=== PATIENT | male | born 1955 | race African-American/Black ===

== ENCOUNTER 2018-11-05 14:32 | Inpatient (IN) | payer OTHER ==
[2018-11-05 18:22] VITALS: BMI 21.9
--- NOTE | 2018-11-05 19:22 | HP ---
CIWA Score Nausea/Vomitin-Mild Nausea/No Vomiting Muscle Tremors: 4-Moderate,w/Arms Extend Anxiety: 3 Agitation: 3 Paroxysmal Sweats: No Perspiration Orientation: 0-Oriented Tacttile Disturbances: 0-None Auditory Disturbances: 0-None Visual Disturbances: 1-Very Mild Sensitivity Headache: 1-Very Mild CIWA-Ar Total Score: 13 - Admission Criteria OASAS Guidelines: Admission for Medically Managed Detox: Requires at least one of the followin. CIWA greater than 12 2. Seizures within the past 24 hours 3. Delirium tremens within the past 24 hours 4. Hallucinations within the past 24 hours 5. Acute intervention needed for co occurring medical disorder 6. Acute intervention needed for co occurring psychiatric disorder 7. Severe withdrawal that cannot be handled at a lower level of care (continued vomiting, continued diarrhea, abnormal vital signs) requiring intravenous medication and/or fluids 8. Patient presents the following: CIWA greater than 12, Acute intervention needed for co-occurring med or psych disorder Admission Criteria Met: Admission criteria met Admission ROS [facility] Chief Complaint: im tired of this Allergies/Adverse Reactions: Allergies Allergy/AdvReac Type Severity Reaction Status Date / Time Penicillins Allergy Intermediate Hives Verified 11/05/18 17:56 History of Present Illness: using substances since age 14 cocaine and marijuana "hangout thing" problematic at age 18 consequences incarceration x 23 years unemployment relationship difficulty on mmtp x 5 years has not impacted use, feels he has escalated heroin use "i want to get it together" - Ebola screening Have you traveled outside of the country in the last 21 days: No (N) Have you had contact with anyone from an Ebola affected area: No Do you have a fever: No - Review of Systems Constitutional: Loss of Appetite, Unintentional Wgt. Loss EENT: reports: No Symptoms Reported Respiratory: reports: No Symptoms reported Cardiac: reports: No Symptoms Reported GI: reports: Poor Appetite, Abdominal cramping : reports: No Symptoms Reported Musculoskeletal: reports: No Symptoms Reported Integumentary: reports: No Symptoms Reported Neuro: reports: No Symptoms reported Endocrine: reports: No Symptoms Reported Hematology: reports: No Symptoms Reported Psychiatric: reports: Depressed (tearful, says he thought about what would happen if he just took a bunch of pills does not feel like he would act on it and says he is not currently suicidal) Patient History - Patient Medical History Hx Anemia: No Hx Asthma: Yes Hx Chronic Obstructive Pulmonary Disease (COPD): No Hx Cancer: No Hx Cardiac Disorders: Yes Hx Congestive Heart Failure: No Hx Hypertension: Yes Hx Hypercholesterolemia: Yes Hx Pacemaker: No HX Cerebrovascular Accident: No Hx Seizures: No Hx Dementia: No Hx Diabetes: No Hx Gastrointestinal Disorders: No Hx Liver Disease: No Hx Genitourinary Disorders: No Hx Sexually Transmitted Disorders: No Hx Renal Disease (ESRD): No Hx Thyroid Disease: No Hx Human Immunodeficiency Virus (HIV): No Hx Hepatitis C: No Hx Depression: Yes Hx Suicide Attempt: No Hx Bipolar Disorder: No Hx Schizophrenia: No - Patient Surgical History Past Surgical History: Yes Hx Neurologic Surgery: No Hx Cataract Extraction: No Hx Cardiac Surgery: Yes (STENTS placed 2013) Hx Lung Surgery: No Hx Breast Surgery: No Hx Breast Biopsy: No Hx Abdominal Surgery: No Hx Appendectomy: No Hx Cholecystectomy: No Hx Genitourinary Surgery: No Hx Section: No Hx Orthopedic Surgery: No Anesthesia Reaction: No - PPD History Date: 06/18/15 Results: Negative - Smoking Cessation Smoking history: Current every day smoker Have you smoked in the past 12 months: Yes Aproximately how many cigarettes per day: 4 Hx Chewing Tobacco Use: No Initiated information on smoking cessation: Yes 'Breaking Loose' booklet given: 11/05/18 - Substances abused Heroin Substance route: Inhalation Frequency: Daily Amount used: 80 dollars or 100 $ Age of first use: 19 Date of last use: 11/05/18 Cocaine Substance route: Inhalation Frequency: Daily Amount used: 100 dollars Age of first use: 19 Date of last use: 11/05/18 Crack Substance route: Smoking Frequency: Daily Amount used: 100 to 150 dollars Age of first use: 24 Date of last use: 11/05/18 Alcohol Substance route: Oral Frequency: Daily Amount used: 1 pint of bacardi/ 3 quarts of beer. Age of first use: 11 Date of last use: 11/05/18 Marijuana/Hashish Substance route: Smoking Frequency: Daily Amount used: 100 dollars Age of first use: 10 Date of last use: 11/05/18 Family Disease History - Family Disease History Family Disease History: Heart Disease: Father (CAD), Mother (HTN,STOMACH), CA: Mother Admission Physical Exam [facility] - Vital Signs Vital Signs: Vital Signs - 24 hr 11/05/18 11/05/18 17:56 18:52 Temperature 97.6 F 97.6 F Pulse Rate 66 66 Respiratory 18 18 Rate Blood Pressure 176/78 H 176/78 H - Physical General Appearance: Yes: Thin, Anxious HEENTM: Yes: EOMI (adentulous) Respiratory: Yes: Chest Non-Tender, Lungs Clear, Normal Breath Sounds Neck: Yes: Within Normal Limits Breast: Yes: Breast Exam Deferred Cardiology: Yes: Regular Rhythm, Regular Rate, S1, S2 Abdominal: Yes: Normal Bowel Sounds, Non Tender, Flat, Soft Genitourinary: Yes: Within Normal Limits Back: Yes: Normal Inspection Musculoskeletal: Yes: full range of Motion, Gait Steady Extremities: Yes: Normal Capillary Refill, Normal Inspection, Normal Range of Motion, Non-Tender Neurological: Yes: Within Normal Limits, apartment property manager II-XII NML intact, Fully Oriented, Alert, Motor Strength 5/5 Integumentary: Yes: Within Normal Limits - Diagnostic (1) CAD (coronary artery disease) Current Visit: Yes Status: Chronic Qualifiers: Coronary Disease-Associated Artery/Lesion type: [place] artery [place] vs. transplanted heart: [place] heart Associated angina: without angina Qualified Code(s): I25.10 - Atherosclerotic heart disease of [place] coronary artery without angina pectoris (2) Cannabis dependence Current Visit: Yes Status: Chronic (3) Cocaine dependence, uncomplicated Current Visit: Yes Status: Chronic (4) HTN (hypertension) Current Visit: Yes Status: Chronic Qualifiers: Hypertension type: essential hypertension Qualified Code(s): I10 - Essential (primary) hypertension (5) Hypercholesterolemia Current Visit: Yes Status: Chronic (6) MDD (major depressive disorder), recurrent severe, without psychosis Current Visit: Yes Status: Chronic (7) Methadone maintenance therapy patient Current Visit: Yes Status: Chronic (8) PTSD (post-traumatic stress disorder) Current Visit: Yes Status: Chronic (9) Alcohol dependence with withdrawal Current Visit: Yes Status: Acute (10) Opiate dependence, continuous Current Visit: Yes Status: Chronic (11) Heroin dependence Current Visit: Yes Status: Chronic Breathalyzer - Breathalyzer Breathalyzer: 0 Urine Drug Screen - Test Device Lot number: [id number] Expiration date: 08/15/20 - Control Is test valid?: Yes - Results Drug screen NEGATIVE: Yes Urine drug screen results: THC-Marijuana, DAVID-Cocaine, FEN-Fentanyl, MOP-Opiates , OXY-Oxycodone, MTD-Methadone Inpatient Rehab Admission - Rehab Decision to Admit Inpatient rehab admission?: No
[2018-11-05] MEDS ORDERED: ACETAMINOPHEN 325 MG TABLET (FP) PO PRN (19:29)
[2018-11-05] MEDS ORDERED: BISMUTH SUBSALICYLATE 524 MG/30 ML UD PO PRN (19:29)
[2018-11-05] MEDS ORDERED: MENTHOL/PHENOL 1 EACH UD MM PRN (19:29)
[2018-11-05] MEDS ORDERED: chlordiazePOXIDE HCL 25 MG CAPSULE PO PRN (19:29)
[2018-11-05] MEDS ORDERED: IBUPROFEN 400 MG TABLET (FP) PO PRN (19:29)
[2018-11-05] MEDS ORDERED: MAG HYDROX/AL HYDROX/SIMETH 30 ML UNIT-DOSE CUP PO PRN (19:29)
[2018-11-05] MEDS ORDERED: MAGNESIUM CITRATE 300 ML BOTTLE PO PRN (19:29)
[2018-11-05] MEDS ORDERED: NICOTINE POLACRILEX 2 MG GUM BUC PRN (19:30)
[2018-11-05] MEDS ORDERED: NITROGLYCERIN SUBLINGUAL 1/150 0.4 MG TAB SL PRN ×2 (19:31→19:49)
[2018-11-05] MEDS: chlordiazePOXIDE HCL 25 MG CAPSULE PO SCH (22:58)
[2018-11-05] MEDS: traZODone HCL 100 MG TABLET (FP) PO SCH (22:58)
[2018-11-05] MEDS: MELATONIN 5 MG TABLETS PO PRN (22:59)
[2018-11-05] MEDS: ROSUVASTATIN CA 10 MG TABLET (FP) PO SCH (23:01)
[2018-11-05] MEDS: NICOTINE 14 MG/24 HOURS TOPICAL PATCH TD SCH (23:01)
[2018-11-05] MEDS: THIAMINE HCL 100 MG TABLET (FP) PO SCH (23:01)
[2018-11-06] MEDS: chlordiazePOXIDE HCL 25 MG CAPSULE PO SCH ×2 (05:50→11:17)
[2018-11-06] MEDS ORDERED: amLODIPine BESYLATE 5 MG TABLET (FP) PO SCH (10:00)
[2018-11-06] MEDS ORDERED: METHADONE HCL 40 MG DISPERSABLE TABLET PO ONE ×2 (10:00→16:00)
--- NOTE | 2018-11-06 10:14 | PN ---
[facility] CIWA - CIWA Score Nausea/Vomitin-Mild Nausea/No Vomiting Muscle Tremors: 3 Anxiety: 2 Agitation: 2 Paroxysmal Sweats: 1-Minimal Palms Moist Orientation: 0-Oriented Tacttile Disturbances: 0-None Auditory Disturbances: 0-None Visual Disturbances: 0-None Headache: 2-Mild CIWA-Ar Total Score: 11 S Progress Note (SOAP) Subjective: doing well with libirum detox regimen long history of hypertension bp elevation data analyst report writer call [phone] [facility] pharmacy for medication list last visit "three years ago" encourage to provide recent pharmacy location patient refuses to provide increase amlodipin to 10 mg po daily additional lisinopril 40 mg po daily increases diltiazem to 240 mg po daily as per external medication list continue to obtain current pharmacy location Objective: 11/06/18 10:38 Vital Signs Temperature 99.4 F 11/06/18 09:49 Pulse Rate 82 11/06/18 09:49 Respiratory Rate 18 11/06/18 09:49 Blood Pressure 192/83 H 11/06/18 09:49 O2 Sat by Pulse Oximetry (%) hypertension: medication modification Laboratory Last Values WBC 4.5 K/mm3 (4.0-10.0) 11/06/18 07:00 RBC 3.50 M/mm3 (4.00-5.60) L 11/06/18 07:00 Hgb 11.0 GM/dL (11.7-16.9) L 11/06/18 07:00 Hct 33.2 % (35.4-49) L 11/06/18 07:00 MCV 94.6 fl (80-96) 11/06/18 07:00 MCH 31.3 pg (25.7-33.7) 11/06/18 07:00 MCHC 33.1 g/dl (32.0-35.9) 11/06/18 07:00 RDW 15.4 % (11.9-15.9) 11/06/18 07:00 Plt Count 329 K/MM3 (134-434) 11/06/18 07:00 MPV 8.0 fl (7.5-11.1) 11/06/18 07:00 lab noted Assessment: 11/06/18 10:39 alcohol withdrawal sx alert oriented x 3 ambulating with cane ate 70% breakfast Plan: continue librium detox regimen methadone 40 mg po daily
--- NOTE | 2018-11-06 10:19 | EKG ---
Test Reason : Blood Pressure : / mmHG Vent. Rate : 061 BPM Atrial Rate : 061 BPM P-R Int : 168 ms QRS Dur : 086 ms QT Int : 456 ms P-R-T Axes : 081 071 -67 degrees QTc Int : 459 ms SINUS RHYTHM WITH OCCASIONAL PREMATURE VENTRICULAR COMPLEXES T WAVE ABNORMALITY, CONSIDER INFERIOR ISCHEMIA ABNORMAL ECG WHEN COMPARED WITH ECG OF 17-JUN-2015 18:29, PREMATURE VENTRICULAR COMPLEXES ARE NOW PRESENT Confirmed by MICA EDMONDS, AWILDA ([id number]) on 11/06/2018 10:18:51 AM Referred By: Confirmed By:AWILDA NINO MD
[2018-11-06 10:30] LABS: HEMATOCRIT 33.2 % (35.4-49); MCH 31.3 pg (25.7-33.7); MCHC 33.1 g/dl (32.0-35.9); MEAN CELL VOLUME 94.6 fl (80-96); PLATELET COUNT 329 K/MM3 (134-434); RDW 15.4 % (11.9-15.9); WHITE BLOOD COUNT 4.5 K/mm3 (4.0-10.0)
[2018-11-06] MEDS: metoPROLOL SUCCINATE 25 MG TAB.SR.24H (FP) PO SCH (10:54)
[2018-11-06] MEDS: CLOPIDOGREL BISULFATE 75 MG TABLET (FP) PO SCH (10:55)
[2018-11-06] MEDS: ASPIRIN 81 MG CHEWABLE TABLETS PO SCH (10:56)
[2018-11-06 11:08] LABS: ALBUMIN 3.1 g/dl (3.4-5.0); BILIRUBIN,TOTAL 0.4 mg/dL (0.2-1); BLOOD UREA NITROGEN 18.5 mg/dL (7-18); CALCIUM 8.5 mg/dL (8.5-10.1); CREATININE 1.3 mg/dL (0.55-1.3); POTASSIUM 3.5 mmol/L (3.5-5.1); TOT PROT 5.9 g/dl (6.4-8.2)
[2018-11-06] MEDS: TAMSULOSIN HCL 0.4 MG CAP PO SCH (11:17)
[2018-11-06] MEDS: PRENATAL VITAMINS W/ FOLIC ACID TABLET (FP) PO SCH (11:18)
[2018-11-06] MEDS: NICOTINE 14 MG/24 HOURS TOPICAL PATCH TD SCH (11:18)
[2018-11-06] MEDS ORDERED: LISINOPRIL 20 MG TABLET (FP) PO ONE (11:25)
[2018-11-06] MEDS ORDERED: amLODIPine BESYLATE 5 MG TABLET (FP) PO ONE (14:00)
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
[2018-11-06] MEDS: MAGNESIUM HYDROX 2400MG/30ML ORAL SUSPENSION 30 ML CUP PO PRN (15:59)
[2018-11-06] MEDS: ALBUTEROL SO4 8 GM HFA INHALER IH PRN ×2 (16:51→23:19)
[2018-11-06] MEDS: chlordiazePOXIDE HCL 10 MG CAPSULE PO SCH ×2 (17:40→23:10)
[2018-11-06] MEDS ORDERED: LISINOPRIL 10 MG TABLET (FP) PO ONE (19:00)
[2018-11-06] MEDS ORDERED: TRIMETHOBENZAMIDE HCL 200MG/2ML INJ IM PRN (21:52)
[2018-11-06] MEDS: THIAMINE HCL 100 MG TABLET (FP) PO SCH (22:58)
[2018-11-06] MEDS: ROSUVASTATIN CA 10 MG TABLET (FP) PO SCH (22:59)
[2018-11-06] MEDS: traZODone HCL 100 MG TABLET (FP) PO SCH (23:09)
[2018-11-06] MEDS: risperiDONE 1 MG TABLET (FP) PO SCH (23:10)
[2018-11-07] MEDS: METHOCARBAMOL 500 MG TABLET PO PRN (02:22)
[2018-11-07] MEDS: hydrOXYzine PAMOATE 25 MG CAPSULE (FP) PO PRN (02:22)
[2018-11-07] MEDS: ACETAMINOPHEN 325 MG TABLET (FP) PO PRN (02:22)
[2018-11-07] MEDS ORDERED: chlordiazePOXIDE HCL 25 MG CAPSULE PO SCH (05:00)
[2018-11-07] MEDS: chlordiazePOXIDE HCL 10 MG CAPSULE PO SCH ×4 (06:26→22:00)
[2018-11-07] MEDS: METHADONE HCL 40 MG DISPERSABLE TABLET PO SCH (06:26)
[2018-11-07] MEDS: ALBUTEROL SO4 8 GM HFA INHALER IH PRN (06:30)
[2018-11-07] MEDS: PRENATAL VITAMINS W/ FOLIC ACID TABLET (FP) PO SCH (11:11)
[2018-11-07] MEDS: TAMSULOSIN HCL 0.4 MG CAP PO SCH (11:12)
[2018-11-07] MEDS: amLODIPine BESYLATE 10 MG TABLET (FP) PO SCH (11:12)
[2018-11-07] MEDS: LISINOPRIL 20 MG TABLET (FP) PO SCH (11:12)
[2018-11-07] MEDS: metoPROLOL SUCCINATE 25 MG TAB.SR.24H (FP) PO SCH (11:13)
[2018-11-07] MEDS: CLOPIDOGREL BISULFATE 75 MG TABLET (FP) PO SCH (11:13)
[2018-11-07] MEDS: NICOTINE 14 MG/24 HOURS TOPICAL PATCH TD SCH (11:13)
[2018-11-07] MEDS: ASPIRIN 81 MG CHEWABLE TABLETS PO SCH (11:14)
--- NOTE | 2018-11-07 11:28 | PN ---
[facility] CIWA - CIWA Score Nausea/Vomitin-No Nausea/No Vomiting Muscle Tremors: 3 Anxiety: 2 Agitation: 2 Paroxysmal Sweats: 2 Orientation: 1-Uncertain about Date (date of the week) Tacttile Disturbances: 0-None Auditory Disturbances: 0-None Visual Disturbances: 0-None Headache: 0-None Present CIWA-Ar Total Score: 10 [facility] Progress Note (SOAP) Subjective: doing well with modified librium detox regimen received methadone 40mg today ambulating with cane less tremor seen by psychiatrist begin risperidal 1 mg po hs Objective: 11/07/18 11:26 Vital Signs Temperature 97.5 F L 11/07/18 09:26 Pulse Rate 58 L 11/07/18 09:26 Respiratory Rate 18 11/07/18 09:26 Blood Pressure 165/81 11/07/18 09:26 O2 Sat by Pulse Oximetry (%) Laboratory Last Values WBC 4.5 K/mm3 (4.0-10.0) 11/06/18 07:00 RBC 3.50 M/mm3 (4.00-5.60) L 11/06/18 07:00 Hgb 11.0 GM/dL (11.7-16.9) L 11/06/18 07:00 Hct 33.2 % (35.4-49) L 11/06/18 07:00 MCV 94.6 fl (80-96) 11/06/18 07:00 MCH 31.3 pg (25.7-33.7) 11/06/18 07:00 MCHC 33.1 g/dl (32.0-35.9) 11/06/18 07:00 RDW 15.4 % (11.9-15.9) 11/06/18 07:00 Plt Count 329 K/MM3 (134-434) 11/06/18 07:00 MPV 8.0 fl (7.5-11.1) 11/06/18 07:00 Sodium 145 mmol/L (136-145) 11/06/18 07:00 Potassium 3.5 mmol/L (3.5-5.1) 11/06/18 07:00 Chloride 107 mmol/L (98-107) 11/06/18 07:00 Carbon Dioxide 32 mmol/L (21-32) 11/06/18 07:00 Anion Gap 7 MMOL/L (8-16) L 11/06/18 07:00 BUN 18.5 mg/dL (7-18) H 11/06/18 07:00 Creatinine 1.3 mg/dL (0.55-1.3) 11/06/18 07:00 Est GFR (CKD-EPI)AfAm 66.83 11/06/18 07:00 Est GFR (CKD-EPI)NonAf 57.66 11/06/18 07:00 Random Glucose 85 mg/dL (74-106) 11/06/18 07:00 Calcium 8.5 mg/dL (8.5-10.1) 11/06/18 07:00 Total Bilirubin 0.4 mg/dL (0.2-1) 11/06/18 07:00 AST 14 U/L (15-37) L 11/06/18 07:00 ALT 17 U/L (13-61) 11/06/18 07:00 Alkaline Phosphatase 74 U/L (45-117) 11/06/18 07:00 Total Protein 5.9 g/dl (6.4-8.2) L 11/06/18 07:00 Albumin 3.1 g/dl (3.4-5.0) L 11/06/18 07:00 RPR Titer Nonreactive (NONREACTIVE) 11/06/18 07:00 lab noted Assessment: 11/07/18 11:27 alcohol withdrawal sx Plan: continue librium detox regimen with methadone 40 mg po daily
[2018-11-07] MEDS: ROSUVASTATIN CA 10 MG TABLET (FP) PO SCH (21:55)
[2018-11-07] MEDS: risperiDONE 1 MG TABLET (FP) PO SCH (21:55)
[2018-11-07] MEDS: THIAMINE HCL 100 MG TABLET (FP) PO SCH (21:55)
[2018-11-07] MEDS: traZODone HCL 100 MG TABLET (FP) PO SCH (21:57)
[2018-11-07] MEDS: MAGNESIUM HYDROX 2400MG/30ML ORAL SUSPENSION 30 ML CUP PO PRN (21:59)
[2018-11-08] MEDS ORDERED: chlordiazePOXIDE HCL 10 MG CAPSULE PO PRN
[2018-11-08] MEDS: METHOCARBAMOL 500 MG TABLET PO PRN (02:11)
[2018-11-08] MEDS: hydrOXYzine PAMOATE 25 MG CAPSULE (FP) PO PRN ×2 (02:11→20:36)
[2018-11-08] MEDS: ACETAMINOPHEN 325 MG TABLET (FP) PO PRN (02:12)
[2018-11-08] MEDS: ALBUTEROL SO4 8 GM HFA INHALER IH PRN (02:19)
[2018-11-08] MEDS: METHADONE HCL 40 MG DISPERSABLE TABLET PO SCH (06:11)
[2018-11-08] MEDS: chlordiazePOXIDE HCL 10 MG CAPSULE PO SCH ×2 (06:11→10:10)
[2018-11-08] MEDS: amLODIPine BESYLATE 10 MG TABLET (FP) PO SCH (10:05)
[2018-11-08] MEDS: metoPROLOL SUCCINATE 25 MG TAB.SR.24H (FP) PO SCH (10:06)
[2018-11-08] MEDS: NICOTINE 14 MG/24 HOURS TOPICAL PATCH TD SCH (10:07)
[2018-11-08] MEDS: PRENATAL VITAMINS W/ FOLIC ACID TABLET (FP) PO SCH (10:07)
[2018-11-08] MEDS: LISINOPRIL 20 MG TABLET (FP) PO SCH (10:07)
[2018-11-08] MEDS: ASPIRIN 81 MG CHEWABLE TABLETS PO SCH (10:51)
[2018-11-08] MEDS: CLOPIDOGREL BISULFATE 75 MG TABLET (FP) PO SCH (10:51)
[2018-11-08] MEDS: TAMSULOSIN HCL 0.4 MG CAP PO SCH (10:55)
--- NOTE | 2018-11-08 12:33 | PN ---
Psychiatric Progress Note Vital Signs: Vital Signs Period Temp Pulse Resp BP Sys/Epperson Pulse Ox Last 24 Hr 97.0 F-98.4 F 52-71 16-18 131-191/61-89 Date of Session: 11/08/18 Chief Complaint:: " I feel sleepy." HPI: Day 4 of detoxification for this 63 y/o AA male with diagnosis of substance use disorder (alcohol, cocaine, opioid, cannabis) co-morbid with MDD and PTSD (according to records). Psychiatric follow-up is sought to address current state of altered mental status (oversedation). ROS: Noted as slow, moderately sedated, slurred. Answers questions. Oriented to place + person. Slow gait. Patient ambulates with a cane. Current Medications: Active Medications Generic Name Dose Route Start Last Admin Trade Name Freq PRN Reason Stop Dose Admin Acetaminophen 650 mg 11/05/18 19:29 11/08/18 02:12 Tylenol - PO 650 mg Q6H PRN Administration PAIN LEVEL 4 - 6 Acetaminophen 650 mg 11/05/18 19:29 Tylenol - PO Q6H PRN FEVER Al Hydroxide/Mg Hydroxide 30 ml 11/05/18 19:29 Mylanta Oral Suspension - PO Q6H PRN DYSPEPSIA Albuterol Sulfate 2 puff 11/05/18 19:31 11/08/18 02:19 Ventolin Hfa Inhaler - IH 2 puff Q4H PRN Administration SHORT OF BREATH/WHEEZING Amlodipine Besylate 10 mg 11/07/18 10:00 11/08/18 10:05 Norvasc - PO 10 mg DAILY KEYLA Administration Aspirin 81 mg 11/06/18 10:00 11/08/18 10:51 Asa - PO 81 mg DAILY KEYLA Administration Bismuth Subsalicylate 524 mg 11/05/18 19:29 Pepto-Bismol - PO Q1H PRN DIARRHEA Chlordiazepoxide HCl 10 mg 11/08/18 05:00 11/08/18 10:10 Librium - PO 11/08/18 23:01 Not Given F7U-QTD KEYLA Chlordiazepoxide HCl 10 mg 11/09/18 05:00 Librium - PO 11/09/18 17:01 Q12H KEYLA Chlordiazepoxide HCl 10 mg 11/08/18 00:00 Librium - PO 11/09/18 00:00 Q4H PRN WITHDRAWAL(CONT SUBST) Chlordiazepoxide HCl 10 mg 11/10/18 05:00 Librium - PO 11/10/18 05:01 ONCE@0500 ONE Clopidogrel Bisulfate 75 mg 11/06/18 10:00 11/08/18 10:51 Plavix - PO 75 mg DAILY KEYLA Administration Diltiazem HCl 240 mg 11/07/18 10:00 11/08/18 10:05 Cardizem Cd - PO 240 mg DAILY KEYLA Administration Eucalyptus/Menthol/Phenol/Sorbitol 1 each 11/05/18 19:29 Cepastat Lozenge - MM 11/11/18 19:29 Q4H PRN SORE THROAT Hydroxyzine Pamoate 25 mg 11/05/18 19:29 11/08/18 02:11 Vistaril - PO 11/11/18 19:29 25 mg Q6H PRN Administration For Anxiety Lisinopril 40 mg 11/07/18 10:00 11/08/18 10:07 Prinivil PO 40 mg DAILY KEYLA Administration Magnesium Citrate 300 ml 11/05/18 19:29 11/07/18 11:11 Citroma - PO 300 ml Q48H PRN Administration CONSTIPATION Magnesium Hydroxide 30 ml 11/05/18 19:29 11/07/18 21:59 Milk Of Magnesia - PO 30 ml PRN PRN Administration CONSTIPATION Melatonin 5 mg 11/05/18 19:29 11/05/18 22:59 Melatonin PO 5 mg HS PRN Administration INSOMNIA Methadone HCl 40 mg 11/07/18 06:00 11/08/18 06:11 Dolophine - PO 11/13/18 05:59 40 mg DAILY@0600 KEYLA Administration Methocarbamol 500 mg 11/05/18 19:29 11/08/18 02:11 Robaxin - PO 11/11/18 19:29 500 mg Q6H PRN Administration MUSCLE SPASMS Metoprolol Succinate 25 mg 11/06/18 10:00 11/08/18 10:06 Toprol Xl - PO 25 mg DAILY KEYLA Administration Nicotine 14 mg 11/05/18 19:30 11/08/18 10:07 Nicoderm Patch - TD Not Given DAILY KEYLA Nicotine Polacrilex 2 mg 11/05/18 19:30 Nicorette Gum - BUC Q2H PRN NICOTINE REPLACEMENT RX Nitroglycerin 0.4 mg 11/05/18 19:49 11/06/18 12:02 Nitrostat - SL 0.4 mg [id number] PRN Administration chest pain Multivit/Folic Acid/Iron 1 tab 11/06/18 10:00 11/08/18 10:07 Vitamins (Sjr) - PO 1 tab DAILY KEYLA Administration Rosuvastatin Calcium 10 mg 11/05/18 22:00 11/07/18 21:55 Crestor - PO 10 mg HS KEYLA Administration Tamsulosin HCl 0.4 mg 11/06/18 08:30 11/08/18 10:55 Flomax - PO Not Given DAILY@0830 KEYLA Thiamine HCl 100 mg 11/05/18 22:00 11/07/18 21:55 Vitamin B1 - PO 100 mg HS KEYLA Administration Trimethobenzamide HCl 200 mg 11/06/18 21:52 11/06/18 21:58 Tigan Injection - IM 200 mg Q8H PRN Administration NAUSEA Medication(s) Change(s): Medications reviewed. External pharmacy activity is surveyed (noted refills for aripriprazole + risperdal on 09/25/18). Patient is currently on methadone maintenance (40 mg/day). Risperdal and trazodone are discontinued. Current Side Effect: Yes (sedation) Lab tests ordered: No Lab tests reviewed: Yes Provider note:: Chart reviewed. Case endorsed to ghost writer by nurse Vee Smart. Psychiatric consult note by MAT Biswas is appreciated. Patient examined at bedside. Observed eating lunch. Conversant. Speech is slow, slurred but coherent and goal-directed. Surveillance Observer took the patient for a short walk in the hallways. Without incident (assisted with cane). Mental status is clearing up. Risperdal + trazodone discontinued temporarily. Mr Fernandes is in agreement with this intervention. Safe hospital course. Total face to face time:: 35 Mental Status Exam - Mental Status Exam Alert and Oriented to: Place, Person Cognitive Function: Impaired Patient Appearance: Well Groomed Mood: Withdrawn Affect: Mood Congruent, Constricted Patient Behavior: Sedated, Fatigued, Cooperative Speech Pattern: Delayed, Slurred Voice Loudness: Moderately Soft/Quiet Thought Process: Goal Oriented (able to answer simle questions; observed eating lunch) Thought Disorder: Not Present Hallucinations: Denies Suicidal Ideation: Denies Homicidal Ideation: Denies Insight/Judgement: Poor Sleep: Well (sleepiness in daytime) Appetite: Fair Gait/Station: Other (not observed) Psychiatric Treatment Plan - Problem List (1) Sedated due to medication Current Visit: Yes Comment: . (2) Alcohol dependence with withdrawal Current Visit: Yes Comment: . (3) Opioid dependence on agonist therapy Current Visit: Yes Comment: . (4) Cocaine dependence, uncomplicated Current Visit: Yes Comment: . (5) Cannabis dependence Current Visit: Yes Comment: . (6) Nicotine dependence Current Visit: Yes Comment: . (7) Mood disorder Current Visit: Yes Comment: .As per records. (8) PTSD (post-traumatic stress disorder) Current Visit: Yes Comment: . As per records and self-report.
[2018-11-08] MEDS ORDERED: amLODIPine BESYLATE 10 MG TABLET (FP) PO SCH (13:30)
--- NOTE | 2018-11-08 17:04 | PN ---
[facility] CIWA - CIWA Score Nausea/Vomitin-No Nausea/No Vomiting Muscle Tremors: 3 Anxiety: 2 Agitation: 0-Normal Activity Paroxysmal Sweats: No Perspiration Orientation: 2-Disoriented Date<2 days Tacttile Disturbances: 0-None Auditory Disturbances: 1-Very Mild Visual Disturbances: 2-Mild Sensitivity Headache: 0-None Present CIWA-Ar Total Score: 10 [facility] Progress Note (SOAP) Subjective: Fatigue, Tremors, Anxious. Objective: PATIENT A & O X 2 (UNCERTAIN ABOUT CURRENT DAY / DATE). IN NO ACUTE DISTRESS. 11/08/18 17:01 Vital Signs Temperature 96.3 F L 11/08/18 13:13 Pulse Rate 56 L 11/08/18 13:13 Respiratory Rate 18 11/08/18 13:13 Blood Pressure 113/70 11/08/18 13:13 O2 Sat by Pulse Oximetry (%) Laboratory Tests 11/06/18 11/06/18 11/06/18 07:00 07:00 07:00 WBC 4.5 RBC 3.50 L Hgb 11.0 L Hct 33.2 L MCV 94.6 MCH 31.3 MCHC 33.1 RDW 15.4 Plt Count 329 MPV 8.0 Sodium 145 Potassium 3.5 Chloride 107 Carbon Dioxide 32 Anion Gap 7 L BUN 18.5 H Creatinine 1.3 Est GFR (CKD-EPI)AfAm 66.83 Est GFR (CKD-EPI)NonAf 57.66 Random Glucose 85 Calcium 8.5 Total Bilirubin 0.4 AST 14 L ALT 17 Alkaline Phosphatase 74 Total Protein 5.9 L Albumin 3.1 L RPR Titer Nonreactive LABS NOTED. PATIENT HAS BEEN ANEMIC ON PREVIOUS ADMISSIONS. 11/08/18 17:02 Assessment: 11/08/18 17:02 WITHDRAWAL SYMPTOMS. ANEMIA. Plan: CONTINUE DETOX. INCREASE DAILY PO WATER INTAKE. PATIENT IS CURRENTLY RECEIVING DAILY MVI CONTAINING B VITAMINS AND IRON WHILE ADMITTED FOR DETOX. PATIENT APPEAR SOMEWHAT LETHARGIC. CURRENT LIBRIUM REGIMEN DOSAGES MODIFIED DOWN TO LOWER DOSES; PSYCHIATRIST DR. ANSARI CONSULTED WITH PATIENT TO SEE IF ANY CHANGES TO CURRENTLY PRESCRIBED PSYCHIATRIC MEDICATIONS WARRANTED.
[2018-11-08] MEDS: chlordiazePOXIDE 5 MG CAPSULE PO SCH (18:39)
[2018-11-08] MEDS: ROSUVASTATIN CA 10 MG TABLET (FP) PO SCH (22:37)
[2018-11-08] MEDS: THIAMINE HCL 100 MG TABLET (FP) PO SCH (22:40)
[2018-11-09] MEDS ORDERED: chlordiazePOXIDE HCL 10 MG CAPSULE PO SCH (05:00)
[2018-11-09] MEDS: chlordiazePOXIDE 5 MG CAPSULE PO SCH ×2 (05:34→18:00)
[2018-11-09] MEDS: METHADONE HCL 40 MG DISPERSABLE TABLET PO SCH (05:34)
[2018-11-09] MEDS: CLOPIDOGREL BISULFATE 75 MG TABLET (FP) PO SCH (10:12)
[2018-11-09] MEDS: amLODIPine BESYLATE 5 MG TABLET (FP) PO SCH (10:12)
[2018-11-09] MEDS: metoPROLOL SUCCINATE 25 MG TAB.SR.24H (FP) PO SCH (10:12)
[2018-11-09] MEDS: ASPIRIN 81 MG CHEWABLE TABLETS PO SCH (10:12)
[2018-11-09] MEDS: TAMSULOSIN HCL 0.4 MG CAP PO SCH (10:12)
[2018-11-09] MEDS: PRENATAL VITAMINS W/ FOLIC ACID TABLET (FP) PO SCH (10:12)
[2018-11-09] MEDS: LISINOPRIL 20 MG TABLET (FP) PO SCH (10:13)
[2018-11-09] MEDS: NICOTINE 14 MG/24 HOURS TOPICAL PATCH TD SCH (10:13)
[2018-11-09] MEDS: MAGNESIUM HYDROX 2400MG/30ML ORAL SUSPENSION 30 ML CUP PO PRN (10:17)
[2018-11-09] MEDS: LIDOCAINE 5% TOPICAL PATCH TP SCH (13:30)
--- NOTE | 2018-11-09 16:09 | PN ---
[facility] CIWA - CIWA Score Nausea/Vomitin-No Nausea/No Vomiting Muscle Tremors: 2 Anxiety: 2 Agitation: 2 Paroxysmal Sweats: No Perspiration Orientation: 2-Disoriented Date<2 days Tacttile Disturbances: 1-Very Mild Itch/Numbness Auditory Disturbances: 0-None Visual Disturbances: 1-Very Mild Sensitivity Headache: 0-None Present CIWA-Ar Total Score: 10 S Progress Note (SOAP) Subjective: Fatigue, Anxious, Body Aches. Objective: PATIENT A & O X 2 (UNCERTAIN ABOUT CURRENT DAY / DATE). PATIENT OBSERVED AMBULATING ON UNIT UNASSISTED. IN NO ACUTE DISTRESS. 11/09/18 16:08 Vital Signs Temperature 97.1 F L 11/09/18 13:17 Pulse Rate 67 11/09/18 13:17 Respiratory Rate 18 11/09/18 13:17 Blood Pressure 141/81 11/09/18 13:17 O2 Sat by Pulse Oximetry (%) Laboratory Tests 11/06/18 11/06/18 11/06/18 07:00 07:00 07:00 WBC 4.5 RBC 3.50 L Hgb 11.0 L Hct 33.2 L MCV 94.6 MCH 31.3 MCHC 33.1 RDW 15.4 Plt Count 329 MPV 8.0 Sodium 145 Potassium 3.5 Chloride 107 Carbon Dioxide 32 Anion Gap 7 L BUN 18.5 H Creatinine 1.3 Est GFR (CKD-EPI)AfAm 66.83 Est GFR (CKD-EPI)NonAf 57.66 Random Glucose 85 Calcium 8.5 Total Bilirubin 0.4 AST 14 L ALT 17 Alkaline Phosphatase 74 Total Protein 5.9 L Albumin 3.1 L RPR Titer Nonreactive LABS NOTED. Assessment: 11/09/18 16:08 WITHDRAWAL SYMPTOMS. ANEMIA. HYPERTENSION. Plan: CONTINUE DETOX. PATIENT SCHEDULED FOR D/C FROM DETOX UNIT TOMORROW, PENDING EVALUATION BY MEDICAL PROVIDER IN AM.
[2018-11-09] MEDS: ACETAMINOPHEN 325 MG TABLET (FP) PO PRN (19:43)
--- NOTE | 2018-11-09 19:54 | PN ---
S Progress Note Note: Resident is referred for incident in which he bumped his head in the wall, no visible injury, no swelling noted. Mild tenderness when palpated. Resident has no neurological changes. Pain medicine to be administered, monitoring ongoing.
[2018-11-09] MEDS ORDERED: LIDOCAINE PATCH REMOVAL MC SCH (22:00)
[2018-11-09] MEDS: THIAMINE HCL 100 MG TABLET (FP) PO SCH (22:15)
[2018-11-09] MEDS: ROSUVASTATIN CA 10 MG TABLET (FP) PO SCH (22:15)
[2018-11-09] MEDS: MELATONIN 5 MG TABLETS PO PRN (22:15)
[2018-11-10] MEDS ORDERED: chlordiazePOXIDE 5 MG CAPSULE PO ONE (05:00)
[2018-11-10] MEDS ORDERED: chlordiazePOXIDE HCL 10 MG CAPSULE PO ONE (05:00)
[2018-11-10] MEDS: METHADONE HCL 40 MG DISPERSABLE TABLET PO SCH (05:31)
[2018-11-10] MEDS: ALBUTEROL SO4 8 GM HFA INHALER IH PRN (05:49)
[2018-11-10 09:24] VITALS: BP 134/84; PULSE 86; TEMP 98.4
--- NOTE | 2018-11-10 09:58 | PN ---
[facility] CIWA - CIWA Score Nausea/Vomitin-No Nausea/No Vomiting Muscle Tremors: 1-None Visible, but [place] Anxiety: 3 Agitation: 2 Paroxysmal Sweats: 1-Minimal Palms Moist Orientation: 0-Oriented Tacttile Disturbances: 0-None Auditory Disturbances: 0-None Visual Disturbances: 0-None Headache: 0-None Present CIWA-Ar Total Score: 7 S Progress Note (SOAP) Subjective: 63 years old male admitted on 11/05/18 for acute alcohol withdrawal sx management doing well with librium detox regimen pump head yesterday unable to describe how and when that happened patient avoid talking about pump head denies headache denies dizziness denies nausea no vomiting ate 90% breakfast seen by psychiatrist begin risperidal and trazodone due to pump head hold risperidal and trazodone alert oriented x 3 steady gait speech clearly coherently goal directed behavior
[2018-11-10] MEDS: LISINOPRIL 20 MG TABLET (FP) PO SCH (10:03)
[2018-11-10] MEDS: amLODIPine BESYLATE 5 MG TABLET (FP) PO SCH (10:03)
[2018-11-10] MEDS: CLOPIDOGREL BISULFATE 75 MG TABLET (FP) PO SCH (10:04)
[2018-11-10] MEDS: TAMSULOSIN HCL 0.4 MG CAP PO SCH (10:04)
[2018-11-10] MEDS: PRENATAL VITAMINS W/ FOLIC ACID TABLET (FP) PO SCH (10:04)
[2018-11-10] MEDS: metoPROLOL SUCCINATE 25 MG TAB.SR.24H (FP) PO SCH (10:04)
[2018-11-10] MEDS: ASPIRIN 81 MG CHEWABLE TABLETS PO SCH (10:04)
[2018-11-10] MEDS: NICOTINE 14 MG/24 HOURS TOPICAL PATCH TD SCH (10:06)
[2018-11-10] MEDS: LIDOCAINE 5% TOPICAL PATCH TP SCH (10:06)
--- NOTE | 2018-11-10 15:03 | DS ---
[facility] Detox Discharge Summary Admission Date: 11/05/18 Discharge Date: 11/10/18 - History Present History: Alcohol Dependence Additional Comments: 63 years old male admitted on 11/05/18 for acute alcohol withdrawal sx management doing well with [facility] detox regimen no complication throughout the detox stay fell 11/09/18 head pump in shower denies headache normal cephalic no nausea no vomiting denies dizziness denies alteration of vision encourage the patient to complete neurological observation patient insists to leave the detox and consider return to patient [facility] admission patient may consider returning to methadone program for aftercare that he will bringing in medication list and lab report to methadone program for follow up Pertinent Past History: hypertension hyperlipidemia alert oriented x 3 speech clearly coherently steady gait [id number] Regular patient agrees to return to methadone program for follow up clear lung bilaterally abdomen soft none tender extremities full range of motion - Physical Exam Results Vital Signs: Vital Signs Temperature 98.4 F 11/10/18 09:23 Pulse Rate 86 11/10/18 09:23 Respiratory Rate 18 11/10/18 09:23 Blood Pressure 134/84 11/10/18 09:23 O2 Sat by Pulse Oximetry (%) Pertinent Admission Physical Exam Findings: alcohol withdrawal sx Laboratory Last Values WBC 4.5 K/mm3 (4.0-10.0) 11/06/18 07:00 RBC 3.50 M/mm3 (4.00-5.60) L 11/06/18 07:00 Hgb 11.0 GM/dL (11.7-16.9) L 11/06/18 07:00 Hct 33.2 % (35.4-49) L 11/06/18 07:00 MCV 94.6 fl (80-96) 11/06/18 07:00 MCH 31.3 pg (25.7-33.7) 11/06/18 07:00 MCHC 33.1 g/dl (32.0-35.9) 11/06/18 07:00 RDW 15.4 % (11.9-15.9) 11/06/18 07:00 Plt Count 329 K/MM3 (134-434) 11/06/18 07:00 MPV 8.0 fl (7.5-11.1) 11/06/18 07:00 Sodium 145 mmol/L (136-145) 11/06/18 07:00 Potassium 3.5 mmol/L (3.5-5.1) 11/06/18 07:00 Chloride 107 mmol/L (98-107) 11/06/18 07:00 Carbon Dioxide 32 mmol/L (21-32) 11/06/18 07:00 Anion Gap 7 MMOL/L (8-16) L 11/06/18 07:00 BUN 18.5 mg/dL (7-18) H 11/06/18 07:00 Creatinine 1.3 mg/dL (0.55-1.3) 11/06/18 07:00 Est GFR (CKD-EPI)AfAm 66.83 11/06/18 07:00 Est GFR (CKD-EPI)NonAf 57.66 11/06/18 07:00 Random Glucose 85 mg/dL (74-106) 11/06/18 07:00 Calcium 8.5 mg/dL (8.5-10.1) 11/06/18 07:00 Total Bilirubin 0.4 mg/dL (0.2-1) 11/06/18 07:00 AST 14 U/L (15-37) L 11/06/18 07:00 ALT 17 U/L (13-61) 11/06/18 07:00 Alkaline Phosphatase 74 U/L (45-117) 11/06/18 07:00 Total Protein 5.9 g/dl (6.4-8.2) L 11/06/18 07:00 Albumin 3.1 g/dl (3.4-5.0) L 11/06/18 07:00 RPR Titer Nonreactive (NONREACTIVE) 11/06/18 07:00 lab noted - Treatment Hospital Course: Detox Protocol Followed, Detoxed Safely, Responded well, Discharged Condition Good, Rehab Referral Accepted Patient has Accepted a Rehab Referral to: [facility] - Medication Discharge Medications: Ambulatory Orders Oxybutynin Chloride [Ditropan -] 5 mg PO TID 06/16/15 Nicotine Patch [Nicoderm Patch -] 7 mg TD DAILY patch 06/18/15 Sertraline HCl [Zoloft -] 100 mg PO DAILY #30 tablet 07/13/15 traZODone HCL [Desyrel -] 100 mg PO HS #30 tablet 07/13/15 Amlodipine Besylate [Norvasc -] 5 mg PO DAILY #30 tablet 07/14/15 Aspirin [ASA -] 81 mg PO DAILY #30 tab.chew 07/14/15 Docusate Sodium [Colace -] 100 mg PO BID #100 capsule 07/14/15 Lisinopril [Prinivil -] 40 mg PO DAILY #30 tablet 07/14/15 Nitroglycerin 0.4 mg SL [id number] PRN #100 tab.subl 07/14/15 Ranitidine [Zantac -] 150 mg PO DAILY #60 tablet 07/14/15 Risperidone [Risperdal] 1 mg PO HS 11/06/18 Albuterol Sulfate Inhaler - [Ventolin HFA Inhaler -] 0 puff IH Q4H PRN #1 inhaler 11/10/18 Amlodipine Besylate [Norvasc -] 10 mg PO DAILY #30 tablet 11/10/18 Clopidogrel Bisulfate [Plavix -] 75 mg PO DAILY #30 tablet 11/10/18 Diltiazem HCl [Diltiazem 24Hr ER] 240 mg PO DAILY #30 capsule.er 11/10/18 Lisinopril [Prinivil] 40 mg PO DAILY #30 tablet 11/10/18 Metoprolol Succinate [Toprol XL -] 25 mg PO DAILY #30 tab.sr.24h 11/10/18 Rosuvastatin [Crestor -] 10 mg PO DAILY #30 tablet 11/10/18 Tamsulosin HCl [Flomax -] 0.4 mg PO DAILY@0830 #30 cap.er.24h 11/10/18 - Diagnosis (1) Alcohol dependence with withdrawal Status: Acute Qualifiers: Complication of substance-induced condition: uncomplicated Qualified Code(s ): F10.230 - Alcohol dependence with withdrawal, uncomplicated (2) Nicotine dependence Status: Acute Qualifiers: Nicotine product type: cigarettes Substance use status: in withdrawal Qualified Code(s): F17.213 - Nicotine dependence, cigarettes, with withdrawal (3) HTN (hypertension) Status: Chronic Qualifiers: Hypertension type: essential hypertension Qualified Code(s): I10 - Essential (primary) hypertension (4) Hypercholesterolemia Status: Chronic (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
== END 2018-11-10 11:36 | disposition home or self-care (01) | DRG 897 ==
LOC: YASAS 14:32 → Y3N 19:46
PROVIDERS: ADMIT Surgery; ATTEND Surgery
PROC: HZ2ZZZZ Detoxification Services for Substance Abuse Treatment (ICD-10-PCS; principal; 2018-11-05)
DX: F10.230 Alcohol dependence with withdrawal, uncomplicated (principal); F11.20 Opioid dependence, uncomplicated; F14.20 Cocaine dependence, uncomplicated; F33.2 Major depressive disorder, recurrent severe without psychotic features; F12.20 Cannabis dependence, uncomplicated; F17.213 Nicotine dependence, cigarettes, with withdrawal; F43.10 Post-traumatic stress disorder, unspecified; I25.10 Atherosclerotic heart disease of native coronary artery without angina pectoris; I10 Essential (primary) hypertension; Z95.5 Presence of coronary angioplasty implant and graft; D64.9 Anemia, unspecified; E78.5 Hyperlipidemia, unspecified; E78.00 Pure hypercholesterolemia, unspecified; J45.909 Unspecified asthma, uncomplicated; M54.5 Low back pain; R40.4 Transient alteration of awareness; Z99.89 Dependence on other enabling machines and devices
CPT/HCPCS: 36415; 80053; 85027; 86593; 93005; 93010; J2794

== ENCOUNTER 2023-01-11 12:45 | Inpatient (IN) | payer OTHER ==
[2023-01-11 13:58] VITALS: BMI 18.6
[2023-01-11] MEDS ORDERED: LOPERAMIDE HCL 2 MG CAPSULE PO PRN (14:25)
[2023-01-11] MEDS ORDERED: BUPRENORPHINE HCL 150 MCG, BUPRENORPHINE HCL 75 MCG BC PRN (14:25)
[2023-01-11] MEDS ORDERED: DICYCLOMINE HCL 10 MG CAPSULE PO PRN ×2 (14:25→17:19)
[2023-01-11] MEDS ORDERED: BUPRENORPHINE HCL 150 MCG, BUPRENORPHINE HCL 75 MCG BC ONE (14:25)
[2023-01-11] MEDS ORDERED: IBUPROFEN 400 MG TABLET (FP) PO PRN (14:25)
[2023-01-11] MEDS ORDERED: NALOXONE HCL (KLOXXADO) 8 MG SPRAY NS PRN (14:25)
[2023-01-11] MEDS ORDERED: NALOXONE HCL 0.4 MG/ML VIAL IM PRN (14:25)
[2023-01-11] MEDS ORDERED: MAG HYDROX/AL HYDROX/SIMETH 30 ML UNIT-DOSE CUP PO PRN (14:25)
[2023-01-11] MEDS ORDERED: ACETAMINOPHEN 325 MG TABLET (FP) PO PRN (14:25)
[2023-01-11] MEDS ORDERED: diazePAM 5 MG TABLET PO PRN (14:25)
[2023-01-11] MEDS ORDERED: ONDANSETRON *ODT* 4 MG TABLET SL PRN (14:25)
[2023-01-11] MEDS ORDERED: MAGNESIUM HYDROX 2400MG/30ML ORAL SUSPENSION 30 ML CUP PO PRN (14:25)
[2023-01-11] MEDS ORDERED: BENZOCAINE/MENTHOL (CHLORASEPTIC ) LOZENGE MM PRN (14:25)
[2023-01-11] MEDS ORDERED: hydrOXYzine PAMOATE 25 MG CAPSULE (FP) PO PRN ×2 (14:25→17:20)
[2023-01-11] MEDS ORDERED: cloNIDine HCL 0.1 MG TABLET PO ONE (14:25)
[2023-01-11] MEDS ORDERED: BISMUTH SUBSALICYLATE 262 MG/15 ML BTL PO PRN (14:25)
[2023-01-11] MEDS ORDERED: IBUPROFEN 600 MG TABLET (FP) PO PRN (14:25)
[2023-01-11] MEDS ORDERED: guaiFENesin 600 MG TABLET.ER (FP) PO PRN (14:25)
[2023-01-11] MEDS ORDERED: POLYETHYLENE GLYCOL (HEALTHYLAX) 3350 17 GM PACKET PO PRN (14:25)
[2023-01-11] MEDS ORDERED: BENZONATATE 200 MG CAPSULE PO PRN (14:25)
[2023-01-11] MEDS ORDERED: NICOTINE 14 MG/24 HOURS TOPICAL PATCH TD SCH (14:30)
[2023-01-11] MEDS ORDERED: BUPRENORPHINE HCL 75 MCG FILM BC ONE (15:24)
[2023-01-11] MEDS ORDERED: BUPRENORPHINE HCL 150 MCG FILM BC ONE (15:24)
[2023-01-11] MEDS ORDERED: PRENATAL VITAMINS W/ FOLIC ACID TABLET (FP) PO ONE (15:25)
[2023-01-11] MEDS ORDERED: cloNIDine HCL 0.1 MG TABLET ONE (15:25)
[2023-01-11] MEDS: PRENATAL VITAMINS W/ FOLIC ACID TABLET (FP) PO SCH (15:32)
[2023-01-11] MEDS ORDERED: cloNIDine HCL 0.1 MG TABLET PO PRN (18:25)
[2023-01-11] MEDS: THIAMINE HCL 100 MG TABLET (FP) PO SCH (21:58)
[2023-01-11] MEDS ORDERED: MELATONIN 5 MG TABLETS PO SCH (22:00)
[2023-01-11] MEDS ORDERED: ALBUTEROL SO4 HFA INHALER IH ONE (23:12)
[2023-01-12] MEDS ORDERED: BUPRENORPHINE HCL 150 MCG, BUPRENORPHINE HCL 75 MCG BC PRN
[2023-01-12] MEDS ORDERED: BUPRENORPHINE HCL 150 MCG, BUPRENORPHINE HCL 75 MCG BC SCH (06:00)
[2023-01-12] MEDS ORDERED: MELATONIN 5 MG TABLETS PO PRN (09:51)
[2023-01-12] MEDS ORDERED: ALBUTEROL SO4 HFA INHALER IH PRN (09:53)
[2023-01-12] MEDS ORDERED: amLODIPine BESYLATE 10 MG TABLET (FP) PO SCH (10:00)
[2023-01-12] MEDS ORDERED: NITROGLYCERIN SUBLINGUAL 1/150 0.4 MG TAB SL PRN (10:01)
[2023-01-12] MEDS ORDERED: CLOPIDOGREL BISULFATE 75 MG TABLET (FP) PO SCH (10:15)
[2023-01-12] MEDS ORDERED: ASPIRIN 81 MG CHEWABLE TABLETS PO SCH (10:15)
[2023-01-12] MEDS: PRENATAL VITAMINS W/ FOLIC ACID TABLET (FP) PO SCH (10:28)
[2023-01-12] MEDS ORDERED: TAMSULOSIN HCL 0.4 MG CAP PO SCH (10:30)
[2023-01-12 10:49] LABS: HEMATOCRIT 26.4 % (35.4-49); HEMOGLOBIN 8.7 GM/dL (11.7-16.9); MCH 29.5 pg (25.7-33.7); MCHC 32.8 g/dl (32.0-35.9); MEAN CELL VOLUME 89.7 fl (80-96); MEAN PLT VOLUME 7.3 fl (7.5-11.1); PLATELET COUNT 458 10^3/uL (134-434); RBC 2.94 M/mm3 (4.00-5.60); RDW 17.7 % (11.9-15.9); WHITE BLOOD COUNT 6.2 K/mm3 (4.0-10.0)
[2023-01-12 10:50] LABS: CHLORIDE 104 mmol/L (98-107); POTASSIUM 4.5 mmol/L (3.5-5.1); SODIUM 141 mmol/L (136-145)
[2023-01-12 10:55] LABS: ALBUMIN 3.2 g/dl (3.4-5.0); ANION GAP 5 mmol/L (4-13); BLOOD UREA NITROGEN 85.5 mg/dL (7-18); CALCIUM 8.2 mg/dL (8.5-10.1); CO2 32 mmol/L (21-32); GLUCOSE,RANDOM 98 mg/dL (74-106)
[2023-01-12 10:57] LABS: SGPT/ALT 33 U/L (13-61)
[2023-01-12 10:58] LABS: CREATININE 2.8 mg/dL (0.55-1.3); SGOT/AST 16 U/L (15-37)
[2023-01-12 10:59] LABS: BILIRUBIN,TOTAL 0.3 mg/dL (0.2-1); TOT PROT 6.5 g/dl (6.4-8.2)
[2023-01-12 11:00] LABS: ALK PHOS 94 U/L (45-117)
[2023-01-12 17:12] VITALS: TEMP 97.7
[2023-01-12 18:41] VITALS: BP 100/60; PULSE 89; RESP 16
[2023-01-12 21:19] LABS: AMYLASE 151 U/L (25-115)
[2023-01-12 21:21] LABS: PHOSPHOROUS 5.8 mg/dL (2.5-4.9)
[2023-01-12] MEDS ORDERED: ROSUVASTATIN CA 10 MG TABLET PO SCH (22:00)
[2023-01-12] MEDS ORDERED: risperiDONE 0.5 MG TABLET PO SCH (22:00)
[2023-01-12] MEDS: THIAMINE HCL 100 MG TABLET (FP) PO SCH (23:58)
[2023-01-13] MEDS ORDERED: BUPRENORPHINE HCL 450 MCG FILM BC SCH (06:00)
[2023-01-13] MEDS ORDERED: SERTRALINE HCL 25 MG TABLET (FP) PO SCH (10:00)
[2023-01-14] MEDS ORDERED: BUPRENORPHINE/NALOXONE 4 MG/1 MG FILM PACKET SL SCH (06:00)
[2023-01-15] MEDS ORDERED: BUPRENORPHINE/NALOXONE 8 MG/2 MG FILM PACKET SL ONE (06:00)
== END 2023-01-13 14:38 | disposition short-term general hospital (02) | DRG 897 ==
LOC: YASAS 12:45 → Y3N 15:23
PROVIDERS: ADMIT Allergy & Immunology; ATTEND Surgery
PROC: HZ2ZZZZ Detoxification Services for Substance Abuse Treatment (ICD-10-PCS; principal; 2023-01-11)
DX: F11.23 Opioid dependence with withdrawal (principal); F14.20 Cocaine dependence, uncomplicated; S52.602 Unspecified fracture of lower end of left ulna; F17.210 Nicotine dependence, cigarettes, uncomplicated; F25.9 Schizoaffective disorder, unspecified; E78.5 Hyperlipidemia, unspecified; I25.10 Atherosclerotic heart disease of native coronary artery without angina pectoris; I10 Essential (primary) hypertension; Z95.5 Presence of coronary angioplasty implant and graft; N28.9 Disorder of kidney and ureter, unspecified; W19.XXXD Unspecified fall, subsequent encounter; Z91.81 History of falling; R29.6 Repeated falls; Z99.89 Dependence on other enabling machines and devices; Z88.0 Allergy status to penicillin
CPT/HCPCS: 36415; 70450-TC; 73030-TC-RT-FY; 73090-TC-LT-FY; 80053; 80307; 82150; 84100; 85027; 86780; 87635; 87811; 93005; 93010

== ENCOUNTER 2023-01-12 19:09 | Inpatient (IN) | payer OTHER ==
[2023-01-12 20:21] LABS: BASO % 1.1 % (0-2.0); EOS % 6.3 % (0-4.5); HEMATOCRIT 25.8 % (35.4-49); HEMOGLOBIN 8.4 GM/dL (11.7-16.9); LYMPH % 26.4 % (8-40); MCH 29.1 pg (25.7-33.7); MCHC 32.7 g/dl (32.0-35.9); MEAN PLT VOLUME 6.9 fl (7.5-11.1); MONO % 8.3 % (3.8-10.2); NEUT % 57.9 % (42.8-82.8); PLATELET COUNT 453 10^3/uL (134-434); RDW 17.4 % (11.9-15.9); WHITE BLOOD COUNT 6.8 K/mm3 (4.0-10.0)
[2023-01-12 20:47] LABS: POTASSIUM 5.1 mmol/L (3.5-5.1)
[2023-01-12 20:50] LABS: ALBUMIN 3.1 g/dl (3.4-5.0); BLOOD UREA NITROGEN 79.3 mg/dL (7-18)
[2023-01-12 20:53] LABS: CREATININE 2.2 mg/dL (0.55-1.3)
[2023-01-12 20:55] LABS: BILIRUBIN,TOTAL 0.2 mg/dL (0.2-1); TOT PROT 6.6 g/dl (6.4-8.2)
[2023-01-12 21:21] LABS: PH,URINE 5.5 (5.0-8.0); URINE APPEARANCE CLEAR; URINE BILIRUBIN NEGATIVE (NEGATIVE); URINE COLOR YELLOW; URINE GLUCOSE (UA) NEGATIVE (NEGATIVE); URINE KETONE NEGATIVE (NEGATIVE); URINE LEUK ESTERASE NEGATIVE (NEGATIVE); URINE NITRITE NEGATIVE (NEGATIVE); URINE PROTEIN NEGATIVE (NEGATIVE); URINE UROBILINOGEN 0.2 mg/dL (0.2-1.0)
[2023-01-12] MEDS ORDERED: SODIUM CHLORIDE 0.9% 500 ML INFUS.BAG IV ONE (22:32)
[2023-01-13] MEDS ORDERED: BUPRENORPHINE HCL 450 MCG FILM BC PRN
[2023-01-13] MEDS ORDERED: BUPRENORPHINE HCL 150 MCG, BUPRENORPHINE HCL 75 MCG BC PRN (02:01)
[2023-01-13] MEDS ORDERED: diazePAM 5 MG TABLET PO PRN (02:01)
[2023-01-13] MEDS ORDERED: BUPRENORPHINE HCL 150 MCG, BUPRENORPHINE HCL 75 MCG BC ONE (02:01)
[2023-01-13] MEDS ORDERED: cloNIDine HCL 0.1 MG TABLET PO ONE (02:01)
[2023-01-13] MEDS: SODIUM CHLORIDE 1,000 ML IV SCH ×3 (03:20→17:57)
[2023-01-13] MEDS ORDERED: ALBUTEROL SO4 HFA INHALER IH PRN (04:17)
[2023-01-13] MEDS ORDERED: NITROGLYCERIN SUBLINGUAL 1/150 0.4 MG TAB SL PRN (04:17)
[2023-01-13] MEDS ORDERED: cloNIDine HCL 0.1 MG TABLET PO PRN (06:01)
[2023-01-13] MEDS ORDERED: LISINOPRIL 20 MG TABLET PO SCH (10:00)
[2023-01-13] MEDS: OXYBUTYNIN CHLORIDE 5 MG TABLET PO SCH ×3 (10:01→22:13)
[2023-01-13] MEDS: metoPROLOL SUCCINATE 25 MG TAB.SR.24H (FP) PO SCH (10:01)
[2023-01-13] MEDS: CLOPIDOGREL BISULFATE 75 MG TABLET (FP) PO SCH (10:02)
[2023-01-13] MEDS: amLODIPine BESYLATE 10 MG TABLET (FP) PO SCH (10:02)
[2023-01-13] MEDS: TAMSULOSIN HCL 0.4 MG CAP PO SCH (10:02)
[2023-01-13] MEDS: SERTRALINE HCL 50 MG TABLET (FP) PO SCH (10:03)
[2023-01-13] MEDS: FAMOTIDINE 20 MG TABLET PO SCH (10:03)
[2023-01-13] MEDS: ASPIRIN 81 MG CHEWABLE TABLETS PO SCH (10:03)
[2023-01-13] MEDS ORDERED: BUPRENORPHINE HCL 450 MCG FILM BC ONE ×2 (13:45→22:00)
[2023-01-13] MEDS: NICOTINE 7 MG/24 HOURS TOPICAL PATCH TD SCH ×2 (13:54→14:10)
[2023-01-13] MEDS: traZODone HCL 100 MG TABLET (FP) PO SCH (22:13)
[2023-01-13] MEDS: risperiDONE 1 MG TABLET PO SCH (22:13)
[2023-01-13] MEDS: ROSUVASTATIN CA 10 MG TABLET PO SCH (22:13)
[2023-01-14] MEDS ORDERED: BUPRENORPHINE HCL 150 MCG, BUPRENORPHINE HCL 75 MCG BC PRN
[2023-01-14] MEDS ORDERED: BUPRENORPHINE HCL 150 MCG, BUPRENORPHINE HCL 75 MCG BC SCH (06:00)
[2023-01-14] MEDS: OXYBUTYNIN CHLORIDE 5 MG TABLET PO SCH ×3 (06:05→21:34)
[2023-01-14] MEDS: BUPRENORPHINE/NALOXONE 2 MG/0.5 MG FILM PACKET SL SCH ×2 (06:05→18:21)
[2023-01-14] MEDS: SODIUM CHLORIDE 1,000 ML IV SCH (06:06)
[2023-01-14] MEDS: CLOPIDOGREL BISULFATE 75 MG TABLET (FP) PO SCH (10:25)
[2023-01-14] MEDS: ASPIRIN 81 MG CHEWABLE TABLETS PO SCH (10:25)
[2023-01-14] MEDS: FAMOTIDINE 20 MG TABLET PO SCH (10:25)
[2023-01-14] MEDS: TAMSULOSIN HCL 0.4 MG CAP PO SCH (10:25)
[2023-01-14] MEDS: SERTRALINE HCL 50 MG TABLET (FP) PO SCH (10:29)
[2023-01-14] MEDS ORDERED: diazePAM 5 MG TABLET PO PRN (10:30)
[2023-01-14] MEDS: NICOTINE 7 MG/24 HOURS TOPICAL PATCH TD SCH (10:33)
[2023-01-14 12:52] LABS: BASO % 1.1 % (0-2.0); EOS % 6.8 % (0-4.5); HEMATOCRIT 26.5 % (35.4-49); HEMOGLOBIN 8.8 GM/dL (11.7-16.9); LYMPH % 18.3 % (8-40); MCH 29.7 pg (25.7-33.7); MCHC 33.2 g/dl (32.0-35.9); MEAN CELL VOLUME 89.4 fl (80-96); MONO % 7.5 % (3.8-10.2); NEUT % 66.3 % (42.8-82.8); PLATELET COUNT 439 10^3/uL (134-434); RBC 2.96 M/mm3 (4.00-5.60); RDW 17.3 % (11.9-15.9); WHITE BLOOD COUNT 6.3 K/mm3 (4.0-10.0)
[2023-01-14] MEDS: metoPROLOL SUCCINATE 25 MG TAB.SR.24H (FP) PO SCH (13:12)
[2023-01-14] MEDS: amLODIPine BESYLATE 10 MG TABLET (FP) PO SCH (13:14)
[2023-01-14 13:20] LABS: POTASSIUM 4.8 mmol/L (3.5-5.1)
[2023-01-14 13:24] LABS: BLOOD UREA NITROGEN 57.8 mg/dL (7-18)
[2023-01-14 13:27] LABS: CREATININE 1.8 mg/dL (0.55-1.3)
[2023-01-14 13:28] LABS: BILIRUBIN,TOTAL 0.5 mg/dL (0.2-1)
[2023-01-14 13:29] LABS: TOT PROT 6.7 g/dl (6.4-8.2)
[2023-01-14] MEDS: ROSUVASTATIN CA 10 MG TABLET PO SCH (21:34)
[2023-01-14] MEDS: traZODone HCL 100 MG TABLET (FP) PO SCH (21:34)
[2023-01-14] MEDS: risperiDONE 1 MG TABLET PO SCH (21:34)
[2023-01-15] MEDS ORDERED: BUPRENORPHINE HCL 450 MCG FILM BC SCH (06:00)
[2023-01-15] MEDS: OXYBUTYNIN CHLORIDE 5 MG TABLET PO SCH ×3 (06:54→22:07)
[2023-01-15] MEDS: BUPRENORPHINE/NALOXONE 8 MG/2 MG FILM PACKET SL ONE ×2 (06:57→06:59)
[2023-01-15 10:08] LABS: BASO % 1.1 % (0-2.0); EOS % 7.1 % (0-4.5); HEMATOCRIT 28.2 % (35.4-49); HEMOGLOBIN 9.2 GM/dL (11.7-16.9); LYMPH % 15.7 % (8-40); MCH 29.7 pg (25.7-33.7); MCHC 32.7 g/dl (32.0-35.9); MEAN CELL VOLUME 90.7 fl (80-96); MONO % 7.6 % (3.8-10.2); NEUT % 68.5 % (42.8-82.8); PLATELET COUNT 482 10^3/uL (134-434); RDW 17.4 % (11.9-15.9)
[2023-01-15 10:36] LABS: POTASSIUM 4.3 mmol/L (3.5-5.1)
[2023-01-15 10:41] LABS: BLOOD UREA NITROGEN 51.9 mg/dL (7-18); CALCIUM 8.4 mg/dL (8.5-10.1)
[2023-01-15 10:46] LABS: BILIRUBIN,TOTAL 0.5 mg/dL (0.2-1); TOT PROT 6.7 g/dl (6.4-8.2)
[2023-01-15 10:52] LABS: CREATININE 1.8 mg/dL (0.55-1.3)
[2023-01-15] MEDS: NICOTINE 7 MG/24 HOURS TOPICAL PATCH TD SCH ×2 (13:06→13:16)
[2023-01-15] MEDS: TAMSULOSIN HCL 0.4 MG CAP PO SCH (13:07)
[2023-01-15] MEDS: metoPROLOL SUCCINATE 25 MG TAB.SR.24H (FP) PO SCH (13:07)
[2023-01-15] MEDS: ASPIRIN 81 MG CHEWABLE TABLETS PO SCH (13:07)
[2023-01-15] MEDS: SERTRALINE HCL 50 MG TABLET (FP) PO SCH (13:07)
[2023-01-15] MEDS: FAMOTIDINE 20 MG TABLET PO SCH (13:07)
[2023-01-15] MEDS: CLOPIDOGREL BISULFATE 75 MG TABLET (FP) PO SCH (13:07)
[2023-01-15] MEDS: HEPARIN NA (PORCINE) 5,000 UNITS/ML 1ML VIAL SQ SCH (22:04)
[2023-01-15] MEDS: traZODone HCL 100 MG TABLET (FP) PO SCH (22:04)
[2023-01-15] MEDS: risperiDONE 1 MG TABLET PO SCH (22:06)
[2023-01-15] MEDS: ROSUVASTATIN CA 10 MG TABLET PO SCH (22:07)
[2023-01-16] MEDS: OXYBUTYNIN CHLORIDE 5 MG TABLET PO SCH ×3 (05:42→21:58)
[2023-01-16] MEDS ORDERED: BUPRENORPHINE/NALOXONE 4 MG/1 MG FILM PACKET SL SCH (06:00)
[2023-01-16] MEDS: FAMOTIDINE 20 MG TABLET PO SCH (09:27)
[2023-01-16] MEDS: CLOPIDOGREL BISULFATE 75 MG TABLET (FP) PO SCH (09:27)
[2023-01-16] MEDS: metoPROLOL SUCCINATE 25 MG TAB.SR.24H (FP) PO SCH (09:27)
[2023-01-16] MEDS: ASPIRIN 81 MG CHEWABLE TABLETS PO SCH (09:27)
[2023-01-16] MEDS: HEPARIN NA (PORCINE) 5,000 UNITS/ML 1ML VIAL SQ SCH ×2 (09:27→21:57)
[2023-01-16] MEDS: SERTRALINE HCL 50 MG TABLET (FP) PO SCH (09:27)
[2023-01-16] MEDS: TAMSULOSIN HCL 0.4 MG CAP PO SCH (09:27)
[2023-01-16] MEDS: NICOTINE 7 MG/24 HOURS TOPICAL PATCH TD SCH (09:29)
[2023-01-16 10:20] LABS: BASO % 0.5 % (0-2.0); EOS % 3.6 % (0-4.5); HEMATOCRIT 26.5 % (35.4-49); HEMOGLOBIN 8.4 GM/dL (11.7-16.9); LYMPH % 12.1 % (8-40); MCH 29.4 pg (25.7-33.7); MCHC 31.8 g/dl (32.0-35.9); MEAN CELL VOLUME 92.3 fl (80-96); MEAN PLT VOLUME 7.2 fl (7.5-11.1); MONO % 5.1 % (3.8-10.2); NEUT % 78.7 % (42.8-82.8); PLATELET COUNT 459 10^3/uL (134-434); RBC 2.87 M/mm3 (4.00-5.60); RDW 17.3 % (11.9-15.9); WHITE BLOOD COUNT 8.3 K/mm3 (4.0-10.0)
[2023-01-16] MEDS ORDERED: BUPRENORPHINE/NALOXONE 8 MG/2 MG FILM PACKET SL SCH (10:30)
[2023-01-16 10:57] LABS: POTASSIUM 4.4 mmol/L (3.5-5.1)
[2023-01-16 11:02] LABS: ALBUMIN 3.1 g/dl (3.4-5.0)
[2023-01-16 11:03] LABS: BLOOD UREA NITROGEN 55.2 mg/dL (7-18)
[2023-01-16 11:06] LABS: CREATININE 2.3 mg/dL (0.55-1.3)
[2023-01-16 11:07] LABS: BILIRUBIN,TOTAL 0.3 mg/dL (0.2-1); TOT PROT 6.8 g/dl (6.4-8.2)
[2023-01-16] MEDS: BUPRENORPHINE/NALOXONE 8 MG/2 MG FILM PACKET SL SCH ×2 (11:23→21:58)
[2023-01-16] MEDS ORDERED: SODIUM CHLORIDE 1,000 ML IV SCH ×2 (17:15)
[2023-01-16] MEDS: SODIUM CHLORIDE 1,000 ML IV SCH (17:21)
[2023-01-16] MEDS: risperiDONE 1 MG TABLET PO SCH (21:57)
[2023-01-16] MEDS: ROSUVASTATIN CA 10 MG TABLET PO SCH (21:58)
[2023-01-16] MEDS: traZODone HCL 100 MG TABLET (FP) PO SCH (21:58)
[2023-01-17] MEDS ORDERED: BUPRENORPHINE/NALOXONE 8 MG/2 MG FILM PACKET SL ONE (06:00)
[2023-01-17] MEDS: OXYBUTYNIN CHLORIDE 5 MG TABLET PO SCH ×3 (06:08→22:41)
[2023-01-17] MEDS: BUPRENORPHINE/NALOXONE 8 MG/2 MG FILM PACKET SL SCH ×2 (10:32→22:42)
[2023-01-17] MEDS: metoPROLOL SUCCINATE 25 MG TAB.SR.24H (FP) PO SCH (10:32)
[2023-01-17] MEDS: FAMOTIDINE 20 MG TABLET PO SCH (10:33)
[2023-01-17] MEDS: ASPIRIN 81 MG CHEWABLE TABLETS PO SCH (10:33)
[2023-01-17] MEDS: TAMSULOSIN HCL 0.4 MG CAP PO SCH (10:33)
[2023-01-17] MEDS: SERTRALINE HCL 50 MG TABLET (FP) PO SCH (10:33)
[2023-01-17] MEDS: HEPARIN NA (PORCINE) 5,000 UNITS/ML 1ML VIAL SQ SCH ×2 (10:34→22:41)
[2023-01-17] MEDS: NICOTINE 7 MG/24 HOURS TOPICAL PATCH TD SCH (12:27)
[2023-01-17] MEDS: CLOPIDOGREL BISULFATE 75 MG TABLET (FP) PO SCH (12:47)
[2023-01-17 19:08] LABS: BASO % 0.8 % (0-2.0); EOS % 6.5 % (0-4.5); HEMOGLOBIN 8.3 GM/dL (11.7-16.9); LYMPH % 17.3 % (8-40); MCH 29.1 pg (25.7-33.7); MCHC 31.9 g/dl (32.0-35.9); MEAN PLT VOLUME 6.8 fl (7.5-11.1); MONO % 7.9 % (3.8-10.2); NEUT % 67.5 % (42.8-82.8); PLATELET COUNT 462 10^3/uL (134-434); RBC 2.86 M/mm3 (4.00-5.60); RDW 16.9 % (11.9-15.9)
[2023-01-17 19:39] LABS: POTASSIUM 4.8 mmol/L (3.5-5.1)
[2023-01-17 19:42] LABS: CALCIUM 8.1 mg/dL (8.5-10.1)
[2023-01-17 19:46] LABS: CREATININE 2.4 mg/dL (0.55-1.3)
[2023-01-17] MEDS: ROSUVASTATIN CA 10 MG TABLET PO SCH (22:41)
[2023-01-17] MEDS: traZODone HCL 100 MG TABLET (FP) PO SCH (22:41)
[2023-01-17] MEDS: risperiDONE 1 MG TABLET PO SCH (22:41)
[2023-01-18] MEDS: OXYBUTYNIN CHLORIDE 5 MG TABLET PO SCH ×3 (06:26→22:26)
[2023-01-18 09:21] LABS: BASO % 1.2 % (0-2.0); EOS % 5.2 % (0-4.5); HEMATOCRIT 24.9 % (35.4-49); HEMOGLOBIN 8.1 GM/dL (11.7-16.9); LYMPH % 16.1 % (8-40); MCH 30.2 pg (25.7-33.7); MCHC 32.7 g/dl (32.0-35.9); MEAN CELL VOLUME 92.4 fl (80-96); MEAN PLT VOLUME 7.2 fl (7.5-11.1); MONO % 7.1 % (3.8-10.2); NEUT % 70.4 % (42.8-82.8); PLATELET COUNT 456 10^3/uL (134-434); RBC 2.69 M/mm3 (4.00-5.60); RDW 16.6 % (11.9-15.9)
[2023-01-18 09:50] LABS: POTASSIUM 4.6 mmol/L (3.5-5.1)
[2023-01-18 09:57] LABS: BLOOD UREA NITROGEN 48.6 mg/dL (7-18); CALCIUM 8.4 mg/dL (8.5-10.1)
[2023-01-18 09:58] LABS: MAGNESIUM 2.3 mg/dL (1.8-2.4)
[2023-01-18 10:00] LABS: CREATININE 1.9 mg/dL (0.55-1.3); PHOSPHOROUS 3.7 mg/dL (2.5-4.9)
[2023-01-18] MEDS: FAMOTIDINE 20 MG TABLET PO SCH (10:46)
[2023-01-18] MEDS: TAMSULOSIN HCL 0.4 MG CAP PO SCH (10:46)
[2023-01-18] MEDS: ASPIRIN 81 MG CHEWABLE TABLETS PO SCH (10:46)
[2023-01-18] MEDS: BUPRENORPHINE/NALOXONE 8 MG/2 MG FILM PACKET SL SCH ×2 (10:46→22:27)
[2023-01-18] MEDS: metoPROLOL SUCCINATE 25 MG TAB.SR.24H (FP) PO SCH (10:46)
[2023-01-18] MEDS: CLOPIDOGREL BISULFATE 75 MG TABLET (FP) PO SCH (10:46)
[2023-01-18] MEDS: SERTRALINE HCL 50 MG TABLET (FP) PO SCH (10:46)
[2023-01-18] MEDS: HEPARIN NA (PORCINE) 5,000 UNITS/ML 1ML VIAL SQ SCH ×2 (10:47→22:26)
[2023-01-18] MEDS: NICOTINE 7 MG/24 HOURS TOPICAL PATCH TD SCH (10:55)
[2023-01-18] MEDS: traZODone HCL 100 MG TABLET (FP) PO SCH (22:26)
[2023-01-18] MEDS: ROSUVASTATIN CA 10 MG TABLET PO SCH (22:26)
[2023-01-18] MEDS: risperiDONE 1 MG TABLET PO SCH (22:26)
[2023-01-19] MEDS ORDERED: hydrOXYzine PAMOATE 25 MG CAPSULE (FP) PO ONE (01:10)
[2023-01-19] MEDS: OXYBUTYNIN CHLORIDE 5 MG TABLET PO SCH ×3 (06:37→22:06)
[2023-01-19] MEDS: TAMSULOSIN HCL 0.4 MG CAP PO SCH (10:54)
[2023-01-19] MEDS: ASPIRIN 81 MG CHEWABLE TABLETS PO SCH (10:54)
[2023-01-19] MEDS: HEPARIN NA (PORCINE) 5,000 UNITS/ML 1ML VIAL SQ SCH ×2 (10:55→22:07)
[2023-01-19] MEDS: SERTRALINE HCL 50 MG TABLET (FP) PO SCH (10:55)
[2023-01-19] MEDS: FAMOTIDINE 20 MG TABLET PO SCH (10:55)
[2023-01-19] MEDS: NICOTINE 7 MG/24 HOURS TOPICAL PATCH TD SCH (10:56)
[2023-01-19] MEDS: metoPROLOL SUCCINATE 25 MG TAB.SR.24H (FP) PO SCH (10:56)
[2023-01-19] MEDS: CLOPIDOGREL BISULFATE 75 MG TABLET (FP) PO SCH (10:56)
[2023-01-19] MEDS: BUPRENORPHINE/NALOXONE 8 MG/2 MG FILM PACKET SL SCH ×2 (11:18→22:08)
[2023-01-19] MEDS ORDERED: amLODIPine BESYLATE 10 MG TABLET (FP) PO ONE (13:30)
[2023-01-19 14:41] LABS: COCAINE, UR NEGATIVE (NEGATIVE); METHADONE, UR NEGATIVE (NEGATIVE); OPIATES, URI NEGATIVE (NEGATIVE); PHENCYCLIDINE,URINE NEGATIVE (NEGATIVE); URINE AMPHETAMINES NEGATIVE (NEGATIVE); URINE BARBITURATES NEGATIVE (NEGATIVE); URINE BENZODIAZEPINES NEGATIVE (NEGATIVE)
[2023-01-19 14:45] VITALS: BMI 21.8
[2023-01-19] MEDS: traZODone HCL 100 MG TABLET (FP) PO SCH (22:06)
[2023-01-19] MEDS: risperiDONE 1 MG TABLET PO SCH (22:06)
[2023-01-19] MEDS: ROSUVASTATIN CA 10 MG TABLET PO SCH (22:07)
[2023-01-20] MEDS: OXYBUTYNIN CHLORIDE 5 MG TABLET PO SCH ×3 (05:19→21:54)
[2023-01-20] MEDS: TAMSULOSIN HCL 0.4 MG CAP PO SCH (08:27)
[2023-01-20] MEDS: CLOPIDOGREL BISULFATE 75 MG TABLET (FP) PO SCH (09:40)
[2023-01-20] MEDS: ASPIRIN 81 MG CHEWABLE TABLETS PO SCH (09:40)
[2023-01-20] MEDS: SERTRALINE HCL 50 MG TABLET (FP) PO SCH (09:41)
[2023-01-20] MEDS: FAMOTIDINE 20 MG TABLET PO SCH (09:41)
[2023-01-20] MEDS: HEPARIN NA (PORCINE) 5,000 UNITS/ML 1ML VIAL SQ SCH ×2 (09:41→21:54)
[2023-01-20] MEDS: BUPRENORPHINE/NALOXONE 8 MG/2 MG FILM PACKET SL SCH ×3 (09:41→21:54)
[2023-01-20] MEDS: metoPROLOL SUCCINATE 25 MG TAB.SR.24H (FP) PO SCH (09:41)
[2023-01-20] MEDS: NICOTINE 7 MG/24 HOURS TOPICAL PATCH TD SCH (09:42)
[2023-01-20] MEDS: amLODIPine BESYLATE 10 MG TABLET (FP) PO SCH (09:42)
[2023-01-20] MEDS: risperiDONE 1 MG TABLET PO SCH (18:23)
[2023-01-20] MEDS: traZODone HCL 100 MG TABLET (FP) PO SCH (21:54)
[2023-01-20] MEDS: ROSUVASTATIN CA 10 MG TABLET PO SCH (21:54)
[2023-01-21] MEDS: OXYBUTYNIN CHLORIDE 5 MG TABLET PO SCH ×3 (06:23→21:28)
[2023-01-21 09:06] LABS: BASO % 1.4 % (0-2.0); EOS % 4.4 % (0-4.5); HEMATOCRIT 29.9 % (35.4-49); HEMOGLOBIN 9.9 GM/dL (11.7-16.9); LYMPH % 24.2 % (8-40); MCH 29.8 pg (25.7-33.7); MEAN CELL VOLUME 90.3 fl (80-96); MONO % 8.1 % (3.8-10.2); NEUT % 61.9 % (42.8-82.8); PLATELET COUNT 565 10^3/uL (134-434); RBC 3.31 M/mm3 (4.00-5.60); RDW 17.2 % (11.9-15.9); WHITE BLOOD COUNT 7.9 K/mm3 (4.0-10.0)
[2023-01-21] MEDS: TAMSULOSIN HCL 0.4 MG CAP PO SCH (09:11)
[2023-01-21 09:19] LABS: POTASSIUM 3.7 mmol/L (3.5-5.1)
[2023-01-21 09:22] LABS: BLOOD UREA NITROGEN 54.6 mg/dL (7-18)
[2023-01-21 09:25] LABS: CREATININE 2.5 mg/dL (0.55-1.3)
[2023-01-21] MEDS: CLOPIDOGREL BISULFATE 75 MG TABLET (FP) PO SCH (09:38)
[2023-01-21] MEDS: SERTRALINE HCL 50 MG TABLET (FP) PO SCH (09:39)
[2023-01-21] MEDS: ASPIRIN 81 MG CHEWABLE TABLETS PO SCH (09:39)
[2023-01-21] MEDS: amLODIPine BESYLATE 10 MG TABLET (FP) PO SCH (09:40)
[2023-01-21] MEDS: HEPARIN NA (PORCINE) 5,000 UNITS/ML 1ML VIAL SQ SCH ×2 (09:40→21:27)
[2023-01-21] MEDS: FAMOTIDINE 20 MG TABLET PO SCH (09:40)
[2023-01-21] MEDS: NICOTINE 7 MG/24 HOURS TOPICAL PATCH TD SCH (09:40)
[2023-01-21] MEDS: BUPRENORPHINE/NALOXONE 8 MG/2 MG FILM PACKET SL SCH ×2 (09:49→21:27)
[2023-01-21] MEDS ORDERED: LIDOCAINE 5% TOPICAL PATCH TP SCH ×2 (10:15→10:55)
[2023-01-21] MEDS ORDERED: LIDOCAINE 4% PATCH TP SCH (11:43)
[2023-01-21] MEDS: LIDOCAINE 4% PATCH TP SCH (12:04)
[2023-01-21] MEDS ORDERED: SODIUM CHLORIDE 0.45% 1,000 ML IV SCH (12:45)
[2023-01-21] MEDS: risperiDONE 1 MG TABLET PO SCH (18:44)
[2023-01-21] MEDS: LIDOCAINE PATCH REMOVAL MC SCH (21:28)
[2023-01-21] MEDS: ROSUVASTATIN CA 10 MG TABLET PO SCH (21:28)
[2023-01-21] MEDS: traZODone HCL 100 MG TABLET (FP) PO SCH (21:28)
[2023-01-22] MEDS: OXYBUTYNIN CHLORIDE 5 MG TABLET PO SCH ×3 (05:26→21:47)
[2023-01-22] MEDS: FAMOTIDINE 20 MG TABLET PO SCH (09:26)
[2023-01-22] MEDS: BUPRENORPHINE/NALOXONE 8 MG/2 MG FILM PACKET SL SCH ×2 (09:26→21:47)
[2023-01-22] MEDS: TAMSULOSIN HCL 0.4 MG CAP PO SCH (09:26)
[2023-01-22] MEDS: HEPARIN NA (PORCINE) 5,000 UNITS/ML 1ML VIAL SQ SCH ×2 (09:26→21:47)
[2023-01-22] MEDS: CLOPIDOGREL BISULFATE 75 MG TABLET (FP) PO SCH (09:26)
[2023-01-22] MEDS: amLODIPine BESYLATE 10 MG TABLET (FP) PO SCH ×2 (09:27→09:36)
[2023-01-22] MEDS: SERTRALINE HCL 50 MG TABLET (FP) PO SCH (09:27)
[2023-01-22] MEDS: ASPIRIN 81 MG CHEWABLE TABLETS PO SCH (09:27)
[2023-01-22] MEDS: LIDOCAINE 4% PATCH TP SCH (09:27)
[2023-01-22 09:40] LABS: HEMATOCRIT 26.8 % (35.4-49); HEMOGLOBIN 8.6 GM/dL (11.7-16.9); MCH 29.3 pg (25.7-33.7); MCHC 32.1 g/dl (32.0-35.9); MEAN CELL VOLUME 91.2 fl (80-96); MEAN PLT VOLUME 7.1 fl (7.5-11.1); PLATELET COUNT 493 10^3/uL (134-434); RBC 2.94 M/mm3 (4.00-5.60); WHITE BLOOD COUNT 7.7 K/mm3 (4.0-10.0)
[2023-01-22] MEDS: NICOTINE 7 MG/24 HOURS TOPICAL PATCH TD SCH (09:59)
[2023-01-22 10:06] LABS: POTASSIUM 4.6 mmol/L (3.5-5.1)
[2023-01-22 10:08] LABS: CALCIUM 7.9 mg/dL (8.5-10.1)
[2023-01-22 10:12] LABS: CREATININE 4.1 mg/dL (0.55-1.3)
[2023-01-22 10:14] LABS: BLOOD UREA NITROGEN 80.1 mg/dL (7-18)
[2023-01-22] MEDS ORDERED: LACTATED RINGERS SOLUTION 1000 ML INFUS.BAG IV ONE (10:49)
[2023-01-22] MEDS: LACTATED RINGERS SOLUTION 1,000 ML/1,000 ML INFUS.BAG IV SCH ×2 (12:00→21:56)
[2023-01-22] MEDS ORDERED: PNEUMOC 20-VAL CONJ-DIP CRM/PF 0.5 ML SYRINGE IM ONE (17:00)
[2023-01-22] MEDS: risperiDONE 1 MG TABLET PO SCH (17:25)
[2023-01-22] MEDS: ROSUVASTATIN CA 10 MG TABLET PO SCH (21:46)
[2023-01-22] MEDS: traZODone HCL 100 MG TABLET (FP) PO SCH (21:47)
[2023-01-22] MEDS: LIDOCAINE PATCH REMOVAL MC SCH (21:56)
[2023-01-23] MEDS: OXYBUTYNIN CHLORIDE 5 MG TABLET PO SCH ×3 (06:40→21:04)
[2023-01-23 09:46] LABS: POTASSIUM 4.3 mmol/L (3.5-5.1)
[2023-01-23 10:00] LABS: ALBUMIN 2.9 g/dl (3.4-5.0); BLOOD UREA NITROGEN 84.5 mg/dL (7-18); CALCIUM 7.8 mg/dL (8.5-10.1)
[2023-01-23 10:05] LABS: BILIRUBIN,TOTAL 0.4 mg/dL (0.2-1); TOT PROT 6.4 g/dl (6.4-8.2)
[2023-01-23] MEDS: FAMOTIDINE 20 MG TABLET PO SCH (11:33)
[2023-01-23] MEDS: CLOPIDOGREL BISULFATE 75 MG TABLET (FP) PO SCH (11:33)
[2023-01-23] MEDS: ASPIRIN 81 MG CHEWABLE TABLETS PO SCH (11:33)
[2023-01-23] MEDS: BUPRENORPHINE/NALOXONE 8 MG/2 MG FILM PACKET SL SCH ×2 (11:36→21:04)
[2023-01-23] MEDS: SERTRALINE HCL 50 MG TABLET (FP) PO SCH (11:36)
[2023-01-23] MEDS: TAMSULOSIN HCL 0.4 MG CAP PO SCH (11:37)
[2023-01-23] MEDS: HEPARIN NA (PORCINE) 5,000 UNITS/ML 1ML VIAL SQ SCH ×2 (11:37→21:04)
[2023-01-23] MEDS: LIDOCAINE 4% PATCH TP SCH (11:43)
[2023-01-23] MEDS: NICOTINE 7 MG/24 HOURS TOPICAL PATCH TD SCH (11:44)
[2023-01-23] MEDS: LACTATED RINGERS SOLUTION 1,000 ML/1,000 ML INFUS.BAG IV SCH (12:36)
[2023-01-23] MEDS: risperiDONE 1 MG TABLET PO SCH (17:28)
[2023-01-23 18:48] VITALS: RESP 18
[2023-01-23] MEDS: ROSUVASTATIN CA 10 MG TABLET PO SCH (21:04)
[2023-01-23] MEDS: traZODone HCL 100 MG TABLET (FP) PO SCH (21:04)
[2023-01-23] MEDS: LIDOCAINE PATCH REMOVAL MC SCH (21:12)
[2023-01-24] MEDS: OXYBUTYNIN CHLORIDE 5 MG TABLET PO SCH ×2 (05:12→14:36)
[2023-01-24] MEDS: TAMSULOSIN HCL 0.4 MG CAP PO SCH (08:11)
[2023-01-24] MEDS: CLOPIDOGREL BISULFATE 75 MG TABLET (FP) PO SCH (10:06)
[2023-01-24] MEDS: HEPARIN NA (PORCINE) 5,000 UNITS/ML 1ML VIAL SQ SCH (10:06)
[2023-01-24] MEDS: BUPRENORPHINE/NALOXONE 8 MG/2 MG FILM PACKET SL SCH (10:06)
[2023-01-24] MEDS: FAMOTIDINE 20 MG TABLET PO SCH (10:06)
[2023-01-24] MEDS: SERTRALINE HCL 50 MG TABLET (FP) PO SCH (10:06)
[2023-01-24] MEDS: ASPIRIN 81 MG CHEWABLE TABLETS PO SCH (10:06)
[2023-01-24] MEDS: LIDOCAINE 4% PATCH TP SCH (10:07)
[2023-01-24] MEDS: NICOTINE 7 MG/24 HOURS TOPICAL PATCH TD SCH (10:14)
[2023-01-24 13:08] LABS: POTASSIUM 4.6 mmol/L (3.5-5.1)
[2023-01-24 13:09] LABS: CALCIUM 8.2 mg/dL (8.5-10.1)
[2023-01-24 13:10] LABS: BLOOD UREA NITROGEN 77.9 mg/dL (7-18)
[2023-01-24 13:13] LABS: CREATININE 2.2 mg/dL (0.55-1.3)
[2023-01-24] MEDS: risperiDONE 1 MG TABLET PO SCH (17:44)
[2023-01-24 18:12] VITALS: BP 135/67; PULSE 63; TEMP 98
[2023-01-25] MEDS ORDERED: TAMSULOSIN HCL 0.4 MG CAP PO SCH (08:30)
[2023-01-25] MEDS ORDERED: FINASTERIDE 5 MG TABLET (FP) PO SCH (10:00)
== END 2023-01-24 19:30 | DRG 682 ==
LOC: JER 19:09 → OBSVTOIN 22:01 → JERBED 22:01 → J5S 01-13 07:33
PROVIDERS: ADMIT Internal Medicine; ATTEND Internal Medicine
DX: N17.9 Acute kidney failure, unspecified (principal); G93.41 Metabolic encephalopathy; F11.20 Opioid dependence, uncomplicated; I25.10 Atherosclerotic heart disease of native coronary artery without angina pectoris; E78.5 Hyperlipidemia, unspecified; M21.372 Foot drop, left foot; F25.9 Schizoaffective disorder, unspecified; R07.89 Other chest pain; F43.10 Post-traumatic stress disorder, unspecified; F40.240 Claustrophobia; G47.00 Insomnia, unspecified; I12.9 Hypertensive chronic kidney disease with stage 1 through stage 4 chronic kidney disease, or unspecified chronic kidney disease; N18.9 Chronic kidney disease, unspecified; F19.10 Other psychoactive substance abuse, uncomplicated; F39 Unspecified mood [affective] disorder; D63.1 Anemia in chronic kidney disease; N40.0 Benign prostatic hyperplasia without lower urinary tract symptoms; W18.30XA Fall on same level, unspecified, initial encounter; Y92.238 Other place in hospital as the place of occurrence of the external cause; Y99.9 Unspecified external cause status; Z95.5 Presence of coronary angioplasty implant and graft
CPT/HCPCS: 36415; 70450-TC; 71045-TC-FY; 76775-TC; 80048; 80053; 80307; 81003; 82570; 82962; 83605; 83735; 83930; 83935; 84100; 84300; 84484; 85025; 85027; 87086; 87635; 90677; 93005; 93010; 97116-GP; 97162-GP; 99285-25; J1644